=== PATIENT | female | born 1955 | race Caucasian/White ===

== ENCOUNTER 2018-08-22 13:35 | Inpatient (IN) | payer OTHER ==
[~2018-08-22] VITALS: Ht 160 cm; Wt 64.4 kg
[2018-09-24] MEDS ORDERED: GABAPENTIN600 MG PO (13:58)
[2018-09-24] MEDS ORDERED: METOCLOPRAMIDE10 MG PO (13:59)
[2018-09-24] MEDS ORDERED: FORTAMET1000 MG PO (13:59)
[2018-09-24] MEDS ORDERED: RANITIDINE HCL300 MG PO (14:00)
[2018-09-24] MEDS ORDERED: LATANOPROST2.5 ML OP (14:00)
[2018-09-24] MEDS ORDERED: GLIMEPIRIDE2 MG PO (14:00)
[2018-09-24] MEDS ORDERED: VITAMIN D1000 UNI1 PO (14:01)
[2018-09-24] MEDS ORDERED: LOSARTAN POTASS25 MG PO (14:01)
[2018-09-24] MEDS ORDERED: SUCRALFATE1 GM PO (14:02)
[2018-09-24] MEDS ORDERED: ZOCOR40 MG PO (14:02)
== END 2018-10-04 17:11 | disposition home or self-care (01) | DRG 331 ==
LOC: SURG 10-01 07:43 → O/R 10-01 07:43 → SURH 10-01 11:00 → O/R 10-01 22:23 → SURG 10-02 13:25
PROVIDERS: ADMIT Colon & Rectal Surgery
PROC: 0DJD8ZZ Inspection of Lower Intestinal Tract, Via Natural or Artificial Opening Endoscopic (ICD-10-PCS; 2018-10-01)
PROC: 3E0F7GC Introduction of Other Therapeutic Substance into Respiratory Tract, Via Natural or Artificial Opening (ICD-10-PCS; 2018-10-01)
PROC: 0DTN4ZZ Resection of Sigmoid Colon, Percutaneous Endoscopic Approach (ICD-10-PCS; principal; 2018-10-01 16:15)
DX: K57.32 Diverticulitis of large intestine without perforation or abscess without bleeding (principal); J44.9 Chronic obstructive pulmonary disease, unspecified; E11.9 Type 2 diabetes mellitus without complications; I13.10 Hypertensive heart and chronic kidney disease without heart failure, with stage 1 through stage 4 chronic kidney disease, or unspecified chronic kidney disease; N18.2 Chronic kidney disease, stage 2 (mild); E78.00 Pure hypercholesterolemia, unspecified

== ENCOUNTER 2019-09-26 08:59 | Day surgery (SDC) | payer OTHER ==
[~2019-09-26 08:59] MED LIST: FORTAMET1000 MG PO; GABAPENTIN600 MG PO; GLIMEPIRIDE2 MG PO; LATANOPROST2.5 ML OP; LOSARTAN POTASS25 MG PO; METOCLOPRAMIDE10 MG PO; RANITIDINE HCL300 MG PO; SUCRALFATE1 GM PO; VITAMIN D1000 UNI1 PO; ZOCOR40 MG PO
== END 2019-09-26 14:40 | disposition home or self-care (01) ==
LOC: AMB-ENDOS 08:59 → ADM 13:00 → AMB-ENDOS 13:00
DX: K57.32 Diverticulitis of large intestine without perforation or abscess without bleeding (principal); K64.1 Second degree hemorrhoids